=== PATIENT | female | born 1995 | race Caucasian/White ===

== ENCOUNTER 2023-03-30 00:28 | Day surgery (SDC) | payer BC, SELFPAY ==
[2023-03-19 16:05] VITALS: BMI 23.1
--- NOTE | 2023-03-30 09:11 | P.PNAN_ITS ---
Anes - Initial Pre Proc Eval Procedure: Operation Date: 03/30/23 12:30 Proposed Procedures p Colonoscopy - Angel Desai MD Date/Time: 03/30/23 09:11 Surgeon: Angel Desai MD Pre Op Diagnosis: Noninfective gastroenteritis and colitis, unspecif Patient Data Age: 28 Gender: F Height: 1.73 m Weight: 69 kg Allergies Allergy/AdvReac Type Severity Reaction Status Date / Time No Known Allergies Allergy Verified 03/30/23 11:21 Home Medications Medication Instructions Recorded Confirmed Type multivitamin,tx-minerals 1 cap PO DAILY 02/15/23 03/30/23 History (Multi-Vitamin HP/Minerals capsule) sertraline 25 mg tablet 25 mg PO DAILY 02/15/23 03/30/23 History amitriptyline 10 mg tablet 10 mg PO DAILY 03/20/23 03/30/23 History Patient hx anesthesia problems: none Family hx anesthesia problems: none Results Review: All pre-operative results and documents have been reviewed as part of the pre- operative evaluation. [facility] Past Medical History Medical History (Updated 02/15/23 @ 13:28 by CHELSEA Samuel) Chronic diarrhea Irritable bowel syndrome with diarrhea Social History Social History (Updated 02/15/23 @ 14:07 by CHELSEA Samuel) Smoking status: Never smoker Living arrangements: with family Spiritual care concerns: No Anes - Eval Final PreProcedure Day of Procedure 03/30/23 09:11 Patient weight: normal Heart: regular rate and rhythm Lungs: clear to auscultation and normal air movement Airway: Mallampati scale class II Neurological: alert and oriented Last oral intake: >/= 8 hours ASA classification: II Emergent: no Anesthetic plan: proceed Anesthesia type and monitoring: general GIVS Results Review: All pre-operative results and documents have been reviewed as part of the pre-operative evaluation. Informed Consent: The patient's anesthetic plan and its attendant risks and benefits were discussed with the patient/family/POA. Questions were solicited and answers provided to the satisfaction of the patient/family/POA.
[2023-03-30 11:24] VITALS: BP 126/86; PULSE 98; RESP 20; TEMP 36.2; O2SAT 98; BMI 22.4
--- NOTE | 2023-03-30 11:30 | PM.HPGS ---
History of Present Illness History of Present Illness Consent: Risks, benefits, and alternatives have been discussed and questions answered. Patient agrees to proceed with procedure. Chief complaint: Noninfective gastroenteritis and colitis, unspecif Narrative: Kanwal Muro is a 28 year old female with diarrhea for few years, never had colonoscopy. Inflammatory markers and serology for celiac negative. Review of Systems Constitutional: Constitutional: Denies headache(s) and Denies weakness Eyes: Eyes: Denies blurry vision ENT: Reports Normal hearing present, Denies headache(s) and Denies neck pain Cardiovascular: Cardiovascular: Denies chest pain and Denies dyspnea Respiratory: Respiratory: Denies dyspnea Gastrointestinal: Gastrointestinal: Reports no additional gastrointestinal complaints Genitourinary: Genitourinary: Denies dysuria Musculoskeletal: Musculoskeletal: Denies neck pain Integumentary/Breasts: Skin/Breast: Denies dry skin Neurologic: Reports Normal hearing present, Denies headache(s) and Denies weakness Psychiatric: Psychiatric: Denies anxiety Endocrine: Endocrine: Denies change in body appearance Hematologic/Lymphatic: Hematologic/Lymphatic: Denies easy bleeding Allergic/Immunologic: Allergic/Immunologic: Denies urticaria PMFSH Past Medical History Medical History (Updated 02/15/23 @ 13:28 by CHELSEA Samuel) Chronic diarrhea Irritable bowel syndrome with diarrhea Social History Social History (Updated 02/15/23 @ 14:07 by CHELSEA Samuel) Smoking status: Never smoker Living arrangements: with family Spiritual care concerns: No Meds Home Medications and Allergies Home Medications Medication Instructions Recorded Confirmed Type multivitamin,tx-minerals 1 cap PO DAILY 02/15/23 03/30/23 History (Multi-Vitamin HP/Minerals capsule) sertraline 25 mg tablet 25 mg PO DAILY 02/15/23 03/30/23 History amitriptyline 10 mg tablet 10 mg PO DAILY 03/20/23 03/30/23 History Allergies Allergy/AdvReac Type Severity Reaction Status Date / Time No Known Allergies Allergy Verified 03/30/23 11:21 Vital Signs Vital Signs - 24 hr 03/30/23 11:24 Temperature 97.2 F L Pulse Rate 98 Respiratory Rate 20 Blood Pressure 126/86 Pulse Oximetry 98 Oxygen Delivery Room Air Exam Const: General: comfortable and no acute distress HENMT: Face/Nose/Sinus: Normal nares present Eyes: General: appearance normal, both eyes and all related structures Neck: Neck: no JVD Resp: Auscultation: clear to auscultation bilaterally Cardio: Rate: regular rate Rhythm: regular rhythm GI: Inspection: non-distended GI Palp: Yes Soft to palpation Skin: General skin exam: normal color Neuro: General: gait normal Speech: normal speech Extrem: General: normal to inspection Psych: Mental Status: mental status grossly normal Assessment and Plan Assessment and plan (1) Irritable bowel syndrome with diarrhea: Code(s): K58.0 - Irritable bowel syndrome with diarrhea Status: Acute Assessment and Plan: colonoscopy with random colon bx
[2023-03-30] MEDS: LACTATED RINGERS 1,000 ML 150 ML IV CONT (11:34)
[2023-03-30 11:59] VITALS: BP 109/69; PULSE 72; RESP 16; O2SAT 100
[2023-03-30 12:09] VITALS: BP 133/90; PULSE 70; RESP 18; O2SAT 100
[2023-03-30 12:19] VITALS: BP 127/79; PULSE 68; RESP 22; O2SAT 100
== END 2023-03-30 12:33 | disposition home or self-care (01) ==
PROVIDERS: PCP Nurse Practitioner Family; Visit Provider Internal Medicine Gastroenterology
PROC: 0DJD8ZZ Inspection of Lower Intestinal Tract, Via Natural or Artificial Opening Endoscopic (ICD-10-PCS; CPT 45378; principal; 2023-03-30 12:30)
DX: K58.0 Irritable bowel syndrome with diarrhea (principal)
CPT/HCPCS: 45380; 88305; J2704; J7120